=== PATIENT | male | born 1985 | race Caucasian/White ===

== ENCOUNTER 2019-05-07 09:02 | Inpatient (IN) ==
--- NOTE | 2019-05-07 09:31 | History & Physical Report ---
Date of Encounter: 05/07/19 Time of Encounter: 09:31 24 Hour HP Update - Instructions Instructions: If the History and Physical is less than 30 days old and was completed prior to A.M. admission and or procedure and has NOT been updated on calendar day of procedure please complete this update prior to performing procedure. - Update Patient reports changes in Medical Condition: No Changes in examination, assessment, or condition: No Changes in Medication: No Preop tests/diagnostics Reviewed: Yes Pre-Op MRSA Screen: Negative Surgery Remains Indicated: Yes Consent for Planned Operative Procedure(s) Verified: Yes - Pre-Operative Checklist Preoperative Checklist Indicated: No Prophylactic Antibiotic Ordered: Yes Home Medications Include Beta Ilya: No Beta Ilya Taken Today (Day of Surgery): No Beta Ilya Taken Yesterday (Day Prior to Surgery): No Is VTE Prophylaxis Indicated?: NO
[2019-05-07] MEDS ORDERED: Albuterol 2.5 MG/3 ML NEBULIZER IH ONE (09:40)
[2019-05-07] MEDS ORDERED: cefOXitin 2,000 MG in Water for inj. (sterile) 20 ML IVP ONE (09:40)
[2019-05-07] MEDS ORDERED: Acetaminophen IV 1,000 MG/100 ML INFUS..BTL IVPB ONE ×2 (09:41→10:03)
[2019-05-07] MEDS ORDERED: Ringers Solution, Lactated 1,000 ML IVC SCH (09:45)
[2019-05-07] MEDS ORDERED: Scopolamine Patch 1.5 MG PATCH.TD72 TD ONE (10:03)
--- NOTE | 2019-05-07 10:08 | Anesthesia Evaluation PreOp ---
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) Other Medical History: Other (non resectable colon polyp, tubular adenomas of the colon) Anesthesia History: No Prior Anesthetic Complications, Past Anesthesia (brain tumor resection, basal cell ca, brain surgery for tumor removal x 2) Alcohol Use: none Drug use: none Medications and Allergies No Known Home Drugs 02/18/19 [History] Allergy/AdvReac Type Severity Reaction Status Date / Time hydromorphone [From Dilaudid] Allergy Hallucinating, Verified 05/07/19 09:43 Hives meperidine [From Demerol] Allergy Hallucinating, Verified 05/07/19 09:43 Hives - Meds/Allergy Pre-op Review Medications Reviewed: Yes Allergies Reviewed: Yes Beta Blockers on Current Med List: No Anesthesia Results - Labs Laboratory Tests 02/18/19 04/30/19 04/30/19 12:41 15:08 15:08 WBC 7.3 Hgb 13.9 Hct 42.8 Plt Count 326 Sodium 142 Potassium 3.9 Chloride 108 H Carbon Dioxide 27 BUN 8 Creatinine 0.67 L Est GFR ( Amer) > 60 Glucose 89 Anesthesia Exam O2 Sat Height 1.85 m Weight 86.636 kg O2 Sat by Pulse Oximetry 98 Vital Signs Temp Pulse Resp BP Pulse Ox 98 F 68 14 133/88 98 05/07/19 09:38 05/07/19 09:38 05/07/19 09:38 05/07/19 09:38 05/07/19 09:38 Weight: 86kg NPO (# of Hours): >8 - HEENT Pupil (Motor): Pupils equal, EOMI Mallampati: II (full bender) Teeth: Edentulous Oral Opening: Greater than 3 - TECHNICIAN CHEMICAL CLEANING LOC: Oriented TECHNICIAN CHEMICAL CLEANING Motor: Normal RUE, Normal LUE, Normal RLE, Normal LLE, Normal Face TECHNICIAN [employer] CLEANING Sensory: Normal: RUE, LUE, RLE, LLE, Face - Cardiac Rhythm: Regular - Pulmonary Breath Sounds: bilateral Clear Respiratory Effort: Symmetrical Anesthesia Assess/Plan ASA Score: 3 Level of consciousness: Cooperative Anesthetic Plan: General Monitoring Plan: Standard Monitors Recovery Plan: PACU
[2019-05-07] MEDS ORDERED: *HR* FentaNYL (PF) 100 MCG/2 ML VIAL IVP PRN (10:15)
[2019-05-07] MEDS ORDERED: *HR* Meperidine 25 MG/ML SYRINGE IVP PRN ×2 (10:15→10:26)
[2019-05-07] MEDS ORDERED: Morphine Sulfate 2 MG/ML SYRINGE IVP PRN (10:15)
[2019-05-07] MEDS ORDERED: *HR* Promethazine 25 MG/ML VIAL IVP PRN (10:15)
[2019-05-07] MEDS ORDERED: Ondansetron 4 MG/2 ML VIAL IVP ONE ×2 (10:15→20:23)
[2019-05-07] MEDS ORDERED: Bupivacaine/EPI 1:200k 0.5%PF 30 ML VIAL ONE (11:23)
[2019-05-07] MEDS ORDERED: CeFAZolin Syr 2,000MG/20 ML 2,000 MG/20 ML SYRINGE IVPB ONE (15:30)
[2019-05-07] MEDS ORDERED: *HR* Rocuronium Bromide 50 MG/5 ML VIAL ONE (15:37)
[2019-05-07] MEDS ORDERED: CefOXitin 1,000 MG VIAL ONE (16:52)
--- NOTE | 2019-05-07 17:20 | Operative Note ---
Date of procedure: 05/07/19 Pre-op diagnosis: Non resectable colon polyps Post-op diagnosis: same Procedure: Robot assisted subtotal colecotmy Anesthesia: GETA Surgeon: Michael Song Was there an kennel assistant present: Yes Junior Financial Analyst: Alyce Oliva Estimated blood loss (cc): 50 Specimen: colon, anastomatic rings Condition: stable Disposition: PACU Procedure in Detail: Date of surgery: 05/07/19 Surgical indications: The patient is a 33-year-old male who underwent a colonoscopy earlier this year secondary to rectal bleeding where 35-40 polyps were discovered. All but 2 polyps were removed (2 polyps were nonresectable via colonoscopy) and biopsy demonstrated evidence of tubular and tubulovillous adenomas. 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 Because of these findings the decision was made to proceed with a robot assisted subtotal colectomy. Surgical course: After properly identifying the patient, the patient was brought to the operating room and placed in the supine position. After proper IV sedation was achieved followed by general endotracheal intubation, the patient's abdomen was prepped and draped in a normal sterile fashion in the patient was placed in a low lithotomy position and the perianal area was also prepped and draped in a normal sterile fashion. Ioban was placed over the epidermis. A suprapubic umbilical incision was made with an 11 blade scalpel down to the rectus fascia and once the rectus fascia was incised and the abdomen entered a 12 mm port was placed to the incision and the abdomen was insufflated with carbon dioxide. A laparoscopic camera was placed the port which showed no injury to the intra-abdominal organs upon entry. A right lower quadrant 12 mm port, a left upper quadrant midclavicular 12 mm port, and a left upper quadrant lateral clavicular 8mm port were all placed under direct camera visualization. The patient was positioned in a Trendelenburg position and the da Argenis robot was brought towards the operative field and docked appropriately. The sigmoid colon was identified and dissected off the lateral sidewall attachments. The sigmoid colon was also lifted and the peritoneum was scored to the right and left extending down towards the rectosigmoid junction. The robotic vessel sealer was then used to dissect the mesentery off the sacral p rominence down towards the rectum posteriorly. Once this was performed the dissection was then carried superiorly along the sigmoid colon and further dissection was then carried along the descending colon up towards the splenic flexure using the robotic vessel sealer. The superior hemorrhoidal vessel and the inferior mesenteric artery were then transected with the robotic vessel sealer. Once this was performed the right lower quadrant was examined and the cecum was retracted medially and the sidewall attachments between the terminal ileum and cecum were transected with a vessel sealer. The distal ileum was then transected with a robotic KATE stapler. The mesentery surrounding the rectosigmoid junction and rectum were transected with the robotic vessel sealer and the rectum at the level of the rectosigmoid junction was transected with a robotic KATE stapler. The da Argenis robot was undocked and then rotated 180 degrees and the patient was placed in a reverse Trendelenburg position. The omentum was retracted superiorly and the omentum was dissected off the transverse colon with the vessel sealer. The mesentery was then scored with the vessel sealer allowing for visualization of the duodenum which was retracted inferiorly. The remaining portion of the mesentery was then transected with the vessel sealer including the ileocolic vessel and middle colic artery. Dissection was carried from the right upper quadrant towards the left upper quadrant i.e. the hepatic and splenic flexures. Dissection was then carried along the descending colon to allow for freeing of the sidewall attachments up towards the hepatic flexure. Once the attachments were freed the colon was placed within the upper abdomen and the area was inspected for hemostasis which was maintained. The decision was then made to undock the da Argenis robot. A regular laparoscopic DeBakey was then used to grasp the transected colonic segment and a separate laparoscopic DeBakey was then used to grasp the distal ileal stump for eventual anastomosis. A 15 blade scalpel was used to make an inframbilical incision down to the pubis. Bovie cauterization was used to dissect through the subcutaneous tissue and posterior sheath until the abdomen was entered. An Nicholas wound protector was then placed within the abdomen and the baking that was attached the colon was extruded through the incision and the total colonic segment was then removed from the abdomen and submitted to pathology. The distal ileal segment was then extruded through the opening and the staple line was then transected without difficulty. The anvil for a 28-Anguillan EEA stapler was then brought onto the operative field and placed through the opening with the male and extruded through the antimesenteric border of this small bowel segment. The open enterotomy was then closed with a laparoscopic KATE stapler and the segment of the bowel was placed back within the abdomen. The EEA stapler was then placed through the anus and the male end was extruded anterior to the rectal stump staple line. The anvil was then connected the anvil was retracted to the hub and the staple line was then completed. The anastomotic rings were inspected and 2 intact anastomotic rings were identified and submitted to pathology. The pelvis was then filled with saline above the level of the staple line while the ileal segment was clamped by hand. Air was insufflated into the rectum with no evidence of bubbling/no evidence of a leak. Once this was performed the abdomen was then filled with normal saline solution containing Mefoxin and was imme diately irrigated. All visualized segments of the bowel were irrigated with normal saline solution and the decision was then made to complete the surgical procedure by removing all ports and approximating the peritoneum with a running 2-0 Vicryl suture. The anterior sheath was then reapproximated with a running #1 PDS suture. The subcutaneous tissue was reapproximated with 0 Vicryl sutures and the fascia for the 12 mm port sites were closed with 0 Vicryl suture. The epidermal and dermal layers were then closed with nba. Needle, sponge, and instrument counts were correct 2 and the incisions were covered with Band-Aids and a 4 x 4 gauze. The patient was aroused from IV sedation, extubated in the operating room without complication, and transported to the recovery room in stable condition.
[2019-05-07] MEDS ORDERED: Lidocaine -MPF 2% 2 ML VIAL ONE (17:24)
[2019-05-07] MEDS ORDERED: Morphine Sulfate Oral CONC 10 MG/0.5 ML ORAL.SYG SL PRN (17:30)
[2019-05-07] MEDS ORDERED: *HR* OxyCODONE/APAP 5/325 TABLET PO PRN (17:30)
[2019-05-07] MEDS ORDERED: Naloxone 0.4 MG/ML INJ IVP PRN (17:30)
[2019-05-07] MEDS ORDERED: 0.9 % Sodium Chloride 1,000 ML IVC SCH (17:30)
[2019-05-07] MEDS ORDERED: Ondansetron 4 MG/2 ML VIAL IVP PRN (17:30)
--- NOTE | 2019-05-07 18:52 | Anesthesia Evaluation Post Op ---
Date of Encounter: 05/07/19 Time of Encounter: 18:40 - Vital Signs Vital Signs: Vital Signs/O2 Sat/Glucose, Most Recent Temp Pulse Resp BP Pulse Ox 98.0 F 62 12 123/80 97 05/07/19 18:41 05/07/19 18:41 05/07/19 18:41 05/07/19 18:41 05/07/19 18:41 - Lungs Lungs: Clear Ascult./Percussion - Airway Airway: Non-obstructed - Cardiovascular Regular Rate - Mental Status Mental Status: Alert & Oriented, Answers Appropriately - Pain Pain Scale: 3 Pain Scale used: Numeric (1 - 10) - Nausea Vomiting Nausea Vomiting: Not Present - Hydration Hydration: Ice chips, Estevez catheter Notes: 05/07/19 18:50 AAOx3, VSS with no complaints - Discharge PostOp Status: Transfer Patient to floor
[2019-05-07] MEDS: Morphine Sulfate Oral CONC 10 MG/0.5 ML ORAL.SYG SL PRN (21:01)
[2019-05-08] MEDS ORDERED: cefOXitin 1,000 MG in Water for inj. (sterile) 10 ML IVP SCH
[2019-05-08] MEDS: Morphine Sulfate Oral CONC 10 MG/0.5 ML ORAL.SYG SL PRN ×2 (01:19→21:09)
--- NOTE | 2019-05-08 06:09 | Anesthesia Procedures ---
Date of Encounter: 05/08/19 Time of Encounter: 17:30 Procedures: Anesthesia - Nerve Block Procedure Date: 05/08/19 Time: 17:30 Pre-op Diagnosis: Non Resectrable Colonic Polyps Surgical Procedure: Robotic Lap Assisted Colectomy Checklist: Correct Patient Identifier Blood Thinner: No Monitor Applied: EKG, BP, Pulse Oximetry Indication: Post Op Analgesia Pre-op Neuro Deficits: No Block Type: Other (TAP Block) Catheter placed: No Depth at skin (cm): 4 Sterile Technique: Yes Ultrasound used: Yes Anatomy identified: Yes Visual spread of Local: Yes Neuro Stimulation: No Blood on Needle Aspiration: No Smooth Injection of Local: Yes Pain with Injection of Local: No Prep: Chlorhexadine Needle: 21 x 100 mm Stimuplex Local: Other (Bupivacaine 0.25%) Volume (cc): 60cc Number of Attempts: 1 Complications: None/effective block
[2019-05-08] MEDS: *HR* Heparin 5,000 UNIT/ML VIAL SQ SCH ×2 (06:30→17:55)
[2019-05-08 07:09] LABS: Basophils % 0.2 %; Hematocrit 43.7 % (37.5-50.1); Hemoglobin 13.6 g/dL (12.9-16.9); Immature Granulocytes % 0.3 % (0-4); Lymphocytes # 2.3 K/mcL (0.6-4.6); Lymphocytes % 17.6 %; Mean Corpuscular HGB Conc 31.1 g/dL (31.6-35.5); Mean Corpuscular Hemoglobin 28.8 pg (28.0-33.3); Mean Corpuscular Volume 92.4 fL (83.0-100.0); Mean Platelet Volume 9.1 fL (9.4-12.4); Monocytes % 7.6 %; Neutrophils # 9.7 K/mcL (1.6-8.9); Platelet Count 335 K/mcL (140-400); Red Blood Count 4.73 M/mcL (4.19-5.50); Red Cell Distribution Width 13.9 % (11.5-14.5); Segmented Neutrophils % 74.3 %; White Blood Count 13.1 K/mcL (4.3-11.1)
[2019-05-08 07:27] LABS: BUN/Creatinine Ratio 9 (6-26); Blood Urea Nitrogen 8 mg/dL (6-20); Calcium 9.1 mg/dL (8.6-10.3); Carbon Dioxide 28 mEq/L (23-29); Chloride 107 mEq/L (98-107); Glucose 127 mg/dL (70-105); Osmolality,Calculated 298 (280-300); Potassium 4.3 mEq/L (3.5-5.1); Sodium 144 mEq/L (136-145); eGFR For African Americans > 60 (> 60); eGFR For Non-African Americans > 60 (> 60)
--- NOTE | 2019-05-08 08:42 | General Surgery Progress Note ---
Date of Encounter: 05/08/19 Time of Encounter: 08:42 - Assessment and Plan (1) S/P laparoscopic colectomy Current Visit: Yes Status: Acute Patient is doing very well. He is able to ambulate in sitting up in the chair currently. No nausea or vomiting. Await for flatus but will start him with full liquids today. Will remove Estevez this morning. If he continues to progress then consider discharge home within the next 24 hours. Subjective Patient reports: other (Patient feels good. No nausea or vomiting. No flatus. Sitting up in chair.) Objective Vital Signs - Last 8 Hours Temp Pulse Resp BP Pulse Ox 05/08/19 07:37 98.0 F 64 18 128/83 97 05/08/19 04:48 98.8 F 79 18 116/66 94 Intake and Output 05/07/19 05/08/19 05/08/19 23:59 07:59 15:59 Output Total 1530 / 1530 2100 / 2100 Balance -1530 / -1510 -2100 / -2100 Output: Estimated Blood Loss 50 / 50 Urine Amount (Catheter) 800 / 800 Catheter 680 / 680 2099 / 2099 Other: Weight 93.5 kg Patient Weight 05/08/19 23:59 Weight 93.5 kg - General physical appearance well nourished, no distress - Respiratory normal expansion, normal respiratory effort - Abdomen Abdomen: Present: soft, tender (mild incisional pain) - Labs 05/08/19 06:55 05/08/19 06:55 Diabetes panel 05/08/19 Range/Units 06:55 Sodium 144 (136-145) mEq/L Potassium 4.3 (3.5-5.1) mEq/L Chloride 107 (98-107) mEq/L Carbon Dioxide 28 (23-29) mEq/L BUN 8 (6-20) mg/dL Creatinine 0.91 (0.70-1.30) mg/dL Glucose 127 H (70-105) mg/dL Calcium 9.1 (8.6-10.3) mg/dL Calcium panel 05/08/19 Range/Units 06:55 Calcium 9.1 (8.6-10.3) mg/dL Pituitary panel 05/08/19 Range/Units 06:55 Sodium 144 (136-145) mEq/L Potassium 4.3 (3.5-5.1) mEq/L Chloride 107 (98-107) mEq/L Carbon Dioxide 28 (23-29) mEq/L BUN 8 (6-20) mg/dL Creatinine 0.91 (0.70-1.30) mg/dL Glucose 127 H (70-105) mg/dL Calcium 9.1 (8.6-10.3) mg/dL Adrenal panel 05/08/19 Range/Units 06:55 Sodium 144 (136-145) mEq/L Potassium 4.3 (3.5-5.1) mEq/L Chloride 107 (98-107) mEq/L Carbon Dioxide 28 (23-29) mEq/L BUN 8 (6-20) mg/dL Creatinine 0.91 (0.70-1.30) mg/dL Glucose 127 H (70-105) mg/dL Calcium 9.1 (8.6-10.3) mg/dL Consult Discharge Plan - Plan Referrals: Michael Song MD [Partnered Physician] - 05/13/19 4:25 pm Godfrey Gudino MD [Primary Care Provider] -
[2019-05-08] MEDS: 0.9 % Sodium Chloride 1,000 ML IVC SCH ×3 (09:18→22:46)
[2019-05-08] MEDS: *HR* OxyCODONE/APAP 5/325 TABLET PO PRN ×3 (09:36→23:01)
[2019-05-08] MEDS ORDERED: *HR* Heparin 5,000 UNIT/ML VIAL SQ SCH (17:32)
[2019-05-09] MEDS: Morphine Sulfate Oral CONC 10 MG/0.5 ML ORAL.SYG SL PRN (03:05)
[2019-05-09] MEDS: *HR* Heparin 5,000 UNIT/ML VIAL SQ SCH (05:22)
--- NOTE | 2019-05-09 10:50 | Discharge Summary ---
<Rozina Gallegos - Last Filed: 05/09/19 10:47> Orders not resulted at time of discharge: Pending orders 05/07/19 18:00 Surgical Pathology [PTH] Routine Date of Encounter: 05/09/19 Time of Encounter: 10:00 - Discharge Diagnosis (1) Colon polyps Priority: Primary Status: Acute Qualifiers: Colon polyp type: hyperplastic Colon location: unspecified part of colon Qualified Code(s): K63.5 - Polyp of colon (2) Family history of cancer Priority: Secondary Status: Acute General Surgery Exam Initial Vital Signs Temp Pulse Resp BP Pulse Ox 98 F 68 14 133/88 98 05/07/19 09:38 05/07/19 09:38 05/07/19 09:38 05/07/19 09:38 05/07/19 09:38 - General physical appearance well nourished, no distress, other (up in room) - Respiratory normal expansion, normal respiratory effort - Abdomen Abdomen general surgery: Present: bowel sounds present, soft, tender (expected postoperative) - Incision Incision: Present: clean and dry, intact - Integumentary Integumentary general surgery: Present: warm and dry, no abnormal pigmentation - Neurologic Present: normal coordination, normal sensation - Musculoskeletal Present: normal gait, normal posture - Psychiatric Psychiatric general surgery: Present: appropriate, oriented to person, oriented to place, oriented to time, speech is normal, memory intact - Hospital Course Hospital course: Mr. Leyva is a 33 year old male who presented on 05/07/2019 for an Elective robotic assisted subtotal colectomy for non-respectable colon polyps with Dr. Song. He was taken to the operating room on the same day. He underwent the planned procedure. His final pathology remains pending at the time of discharge. 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 His hospital course has been uncomplicated. He is ambulating and voiding without difficulty, tolerating a soft diet without nausea or vomiting, vital signs are stable, and he is afebrile. He is having loose bowel movements but denies diarrhea at this time. He has been expressly educated about the possibility of diarrhea postoperatively and the possible need for Imodium as well as increased oral intake for hydration. We will begin discharge planning to home with a follow-up in the office in approximately 2 weeks. - Time Spent with Patient Total time spent providing and/or coordinating discharge services: - Discharge Medications Prescriptions: New Ibuprofen 800 mg PO Q8H PRN #30 tablet PRN Reason: Postsurgical pain OxyCODONE/APAP 5/325 [Percocet 5/325 MG] 1 each PO Q6HR PRN 7 Days #28 tablet PRN Reason: Pain Ondansetron ODT [Zofran ODT] 4 mg SL Q4HR PRN #15 tab.rapdis PRN Reason: Postsurgical nausea Home Medications: Ibuprofen 800 mg PO Q8H PRN #30 tablet 05/09/19 [Rx] Ondansetron ODT [Zofran ODT] 4 mg SL Q4HR PRN #15 tab.rapdis 05/09/19 [Rx] OxyCODONE/APAP 5/325 [Percocet 5/325 MG] 1 each PO Q6HR PRN 7 Days #28 tablet 05/09/19 [Rx] Allergies/Adverse Reactions: Allergy/AdvReac Type Severity Reaction Status Date / Time hydromorphone [From Dilaudid] Allergy Hallucinating, Verified 05/07/19 09:43 Hives meperidine [From Demerol] Allergy Hallucinating, Verified 05/07/19 09:43 Hives Date of admission: 05/07/19 18:47 Primary care physician: Godfrey Gudino MD Discharging clinician: Michael Song (aMrta Gallegos APRN) Anticipated date of discharge: 05/09/19 - Patient Status Disposition: Home, Self-Care Condition: Good Functional capacity at discharge: independent ambulation Overall status at discharge: patient is progressing back to baseline - Discharge Instructions Instructions: Colectomy (DC) Follow Up With: Michael Song MD [Partnered Physician] - 05/13/19 4:25 pm Additional Instructions: General Surgical Discharge Instructions 1. No pushing, pulling, or lifting greater than 15 lbs for 4 weeks (this can be adjusted at your follow up depending upon procedure). 2. You may remove your dressings and shower beginning today, but no tub baths, soaking, or swimming for 2 weeks. 3. No driving for two weeks unless otherwise specified and then you may resume driving when you are off narcotics and are safe to react in a car. 4. Take ibuprofen every 8 hours for discomfort. If this does not relieve discomfort, you may take the as needed Percocet. Eat a small snack with pain medication as this will help reduce the risk of nausea. Take narcotics as directed. Do not take more narcotics then directed and do not share your narcotics with any other person. Do not drink alcohol while on narcotics. You can take the Zofran/ondansetron if needed for nausea or with a dose of narcotics to prevent nausea. 5. You may need Immodium if you are having more than 6 diarrhea episodes daily. 6. Report any fevers greater than 100.5F, increase abdominal discomfort, drainage that looks like pus, increased redness or pain at the surgical site, or any vomiting. 7. Report any pain in the calves, shortness of breath, or rapid heartbeat. 8. Follow-up in the office as directed. 9. If you were prescribed antibiotics, do not stop them without talking to your provider. Frequent loose stools are common with a subtotal colectomy. Ensure that you are drinking at least 64 ounces of non-sugary fluids daily. - Diet and Activity Activity: increase activity as tolerated Diet: advance to your usual diet <Michael Song - Last Filed: 05/09/19 12:30> Orders not resulted at time of discharge: Pending orders 05/07/19 18:00 Surgical Pathology [PTH] Routine Date of Encounter: 05/09/19 - Discharge Diagnosis (1) S/P laparoscopic colectomy Status: Acute General Surgery Exam Initial Vital Signs Temp Pulse Resp BP Pulse Ox 98 F 68 14 133/88 98 05/07/19 09:38 05/07/19 09:38 05/07/19 09:38 05/07/19 09:38 05/07/19 09:38 - Hospital Course Hospital course: Mr. Leyva is a 33 year old male - Time Spent with Patient Total time spent providing and/or coordinating discharge services: Date of admission: 05/07/19 18:47 Primary care physician: Godfrey Gudino MD - Attending Attestation I have personally performed a face to face evaluation on this patient. I have reviewed and agree with the care plan. History and Exam by me shows: I reviewed the above assessment and evaluation and agree with the above plan.
[2019-05-09 12:05] VITALS: BP 131/76
== END 2019-05-09 12:36 | disposition home or self-care (01) | DRG 331 ==
LOC: SAMDAY 09:02 → 3ANU 18:47
PROVIDERS: ADMIT Surgery; ATTEND Surgery